=== PATIENT | female | born 1940 | race Caucasian/White ===

== ENCOUNTER 2021-07-23 16:10 | Outpatient (CLI) | payer MEDICARE, BC ==
[2021-07-23 17:45] LABS: Hemoglobin 11.7 g/dL (12.0-15.5); Mean Corpuscular HGB CONC 33.9 g/dL (32.0-36.0); Mean Corpuscular Hemoglobin 33.1 pg (27.0-33.0); Mean Corpuscular Volume 97.7 fl (81.6-98.3); Mean Platelet Volume 9.6 fl (7.4-10.4); Platelet Count 278 10x3/uL (150-450); RBC Distribution Width 12.5 % (11.5-14.5); Red Blood Cell (RBC) Count 3.53 10x6/uL (3.90-5.03); White Blood Cell (WBC) Count 4.6 10x3/uL (3.5-10.5)
[2021-07-23 17:47] LABS: Prothrombin Time 10.9 sec (9.5-12.1)
[2021-07-23 17:50] LABS: Anion Gap 12 mmol/L (10-20); BUN (Urea Nitrogen) 34 mg/dL (9.8-20.1); Calc. Creatinine Clearance 0 mL/min (70-130); Carbon Dioxide 28 mmol/L (23-31); Chloride 105 mmol/L (98-107); Glucose 109 mg/dL (83-110); Potassium 4.4 mmol/L (3.5-5.1); Sodium 141 mmol/L (136-145)
[2021-07-24 15:29] LABS: SARS-CoV-2 PCR by NAA Not Detected (NotDetected)
== END 2021-07-23 16:11 | disposition home or self-care (01) ==
LOC: LABBT 16:10
PROVIDERS: ATTEND Surgery
DX: Z01.818 Encounter for other preprocedural examination (principal); M47.16 Other spondylosis with myelopathy, lumbar region; M48.062 Spinal stenosis, lumbar region with neurogenic claudication; Z20.822 Contact with and (suspected) exposure to COVID-19
CPT/HCPCS: 80048; 85027; 85610; 85730; 93005; U0003; U0005; 93010

== ENCOUNTER 2021-07-28 07:52 | Inpatient (IN) | payer MEDICARE, BC ==
[2021-07-22 10:38] VITALS: BMI 28.3
[2021-07-28] MEDS ORDERED: ceFAZolin 2 GM/DEX 5% 100 ML BAG ONE ×2 (08:46→17:32)
[2021-07-28] MEDS ORDERED: Fentanyl 100 MCG/2 ML VIAL ONE (09:35)
[2021-07-28] MEDS ORDERED: Dexamethasone 20 MG/5 ML VIAL ONE (10:00)
[2021-07-28] MEDS ORDERED: Labetalol HCl 100 MG/20 ML VIAL ONE (10:00)
[2021-07-28] MEDS ORDERED: Ondansetron PF 4 MG/2 ML Vial ONE (10:00)
[2021-07-28] MEDS ORDERED: Lidocaine 1% PF 5 ML VIAL ONE (10:00)
[2021-07-28] MEDS ORDERED: Rocuronium Bromide 10 MG/ML (10ML VIAL) ONE (10:00)
[2021-07-28] MEDS ORDERED: Ketorolac Tromethamine 30 MG/ML VIAL ONE (10:00)
[2021-07-28] MEDS ORDERED: PROPOFOL 200 MG/20 ML VIAL ONE (10:00)
[2021-07-28] MEDS ORDERED: Thrombin 5000 UNITS/5 ML VIAL ONE (10:16)
[2021-07-28] MEDS ORDERED: hydrALAZINE 20 MG/ML VIAL ONE (10:50)
[2021-07-28] MEDS ORDERED: SUGAMMADEX SODIUM 200 MG/2 ML VIAL ONE (11:18)
[2021-07-28] MEDS ORDERED: traMADol HCl 50 MG TAB PO PRN (11:50)
[2021-07-28] MEDS ORDERED: HYDROcodone/Acetaminophen 7.5/325 mg Tablet PO PRN (11:50)
[2021-07-28] MEDS ORDERED: Promethazine HCl 25 MG/ML VIAL ONE (11:58)
[2021-07-28] MEDS ORDERED: Ondansetron HCl/PF 4 MG/2 ML Vial IVP PRN (11:59)
[2021-07-28] MEDS ORDERED: Promethazine HCl 25 MG/ML VIAL IVPB PRN (11:59)
[2021-07-28] MEDS ORDERED: Morphine Sulfate 2 MG/ML SYRINGE SLOW IVP PRN (11:59)
[2021-07-28] MEDS ORDERED: Promethazine HCl 25 MG/ML VIAL IM PRN (11:59)
[2021-07-28] MEDS ORDERED: Morphine 4 MG/ML VIAL ONE ×3 (12:10→13:23)
[2021-07-28] MEDS ORDERED: Acetaminophen 325 MG TAB ONE ×2 (18:39)
[2021-07-28] MEDS: ceFAZolin Sodium/D5W 2 GM in Premix Bag 1 BAG IVPB SCH (20:50)
[2021-07-28] MEDS: Sodium Chloride 0.9% 1,000 ML IV SCH (20:50)
[2021-07-28] MEDS: cloNIDine 0.1 MG TAB PO SCH (20:52)
[2021-07-28] MEDS: busPIRone HCl 10 MG TAB PO SCH (20:52)
[2021-07-28] MEDS: Atorvastatin Calcium 40 MG TAB PO SCH (20:52)
[2021-07-28] MEDS: Melatonin 3 MG TAB PO SCH (20:53)
[2021-07-28] MEDS: Mirtazapine 30 MG TAB PO SCH (20:53)
[2021-07-28] MEDS: Senokot S 8.6-50 MG TAB PO SCH (20:53)
[2021-07-28] MEDS: Losartan 25 MG TAB PO SCH (20:53)
[2021-07-28] MEDS: Gabapentin 300 MG CAP PO SCH (20:53)
[2021-07-28] MEDS: Acetaminophen 325 MG TAB PO PRN (21:10)
[2021-07-28] MEDS: tiZANidine HCl 4 MG TAB PO PRN (21:10)
[2021-07-28] MEDS: Morphine 4 MG/ML VIAL SLOW IVP PRN (23:03)
[2021-07-29] MEDS: Sodium Chloride 0.9% 1,000 ML IV SCH ×3 (01:38→21:22)
[2021-07-29] MEDS: ceFAZolin Sodium/D5W 2 GM in Premix Bag 1 BAG IVPB SCH (01:39)
[2021-07-29] MEDS: Morphine 4 MG/ML VIAL SLOW IVP PRN ×2 (01:40→06:00)
[2021-07-29] MEDS: Levothyroxine Sodium 75 MCG TAB PO SCH (05:57)
[2021-07-29] MEDS: Acetaminophen 325 MG TAB PO PRN (06:00)
[2021-07-29] MEDS: Multivit, Therapeutic 1 TAB PO SCH (08:31)
[2021-07-29] MEDS: Calcium Carbonate 600 MG TAB PO SCH (08:31)
[2021-07-29] MEDS: Hydrochlorothiazide 25 MG TAB PO SCH (08:31)
[2021-07-29] MEDS: busPIRone HCl 10 MG TAB PO SCH ×2 (08:31→21:17)
[2021-07-29] MEDS: Losartan 25 MG TAB PO SCH ×2 (08:32→21:17)
[2021-07-29] MEDS: cloNIDine 0.1 MG TAB PO SCH ×2 (08:32→21:18)
[2021-07-29] MEDS: DULoxetine 60 MG CAP PO SCH (08:32)
[2021-07-29] MEDS: Cholecalciferol 1,000 UNITS (25 MCG) TAB PO SCH (08:33)
[2021-07-29] MEDS: traMADol HCl 50 MG TAB PO PRN (08:57)
[2021-07-29] MEDS: Melatonin 3 MG TAB PO SCH (21:17)
[2021-07-29] MEDS: Atorvastatin Calcium 40 MG TAB PO SCH (21:17)
[2021-07-29] MEDS: Mirtazapine 30 MG TAB PO SCH (21:17)
[2021-07-29] MEDS: tiZANidine HCl 4 MG TAB PO PRN (21:17)
[2021-07-29] MEDS: Gabapentin 300 MG CAP PO SCH (21:18)
[2021-07-29] MEDS: Senokot S 8.6-50 MG TAB PO SCH (21:18)
[2021-07-30] MEDS: Levothyroxine Sodium 75 MCG TAB PO SCH (05:43)
[2021-07-30] MEDS: busPIRone HCl 10 MG TAB PO SCH (09:07)
[2021-07-30] MEDS: Hydrochlorothiazide 25 MG TAB PO SCH (09:07)
[2021-07-30] MEDS: Calcium Carbonate 600 MG TAB PO SCH (09:07)
[2021-07-30] MEDS: cloNIDine 0.1 MG TAB PO SCH (09:07)
[2021-07-30] MEDS: Losartan 25 MG TAB PO SCH (09:07)
[2021-07-30] MEDS: Cholecalciferol 1,000 UNITS (25 MCG) TAB PO SCH (09:08)
[2021-07-30] MEDS: DULoxetine 60 MG CAP PO SCH (09:08)
[2021-07-30] MEDS: Multivit, Therapeutic 1 TAB PO SCH (09:08)
[2021-07-30 09:12] VITALS: TEMP 99.1
[2021-07-30] MEDS: traMADol HCl 50 MG TAB PO PRN (13:56)
[2021-07-30 14:32] VITALS: BP 137/52
== END 2021-07-30 16:20 | DRG 460 ==
LOC: SDC 07:52 → T4-B 11:50 → OBSVTOIN 07-29 18:52
PROVIDERS: ADMIT Surgery; ATTEND Surgery
PROC: 0SG0071 Fusion of Lumbar Vertebral Joint with Autologous Tissue Substitute, Posterior Approach, Posterior Column, Open Approach (ICD-10-PCS; principal; 2021-07-28)
PROC: 01NB0ZZ Release Lumbar Nerve, Open Approach (ICD-10-PCS; 2021-07-28)
PROC: 5A09357 Assistance with Respiratory Ventilation, Less than 24 Consecutive Hours, Continuous Positive Airway Pressure (ICD-10-PCS; 2021-07-29)
DX: M48.062 Spinal stenosis, lumbar region with neurogenic claudication (principal); G99.2 Myelopathy in diseases classified elsewhere; M43.16 Spondylolisthesis, lumbar region; I10 Essential (primary) hypertension; E78.5 Hyperlipidemia, unspecified; G47.30 Sleep apnea, unspecified; F32.A Depression, unspecified; F41.9 Anxiety disorder, unspecified; E03.9 Hypothyroidism, unspecified; Z99.89 Dependence on other enabling machines and devices; Z85.828 Personal history of other malignant neoplasm of skin; Z79.899 Other long term (current) drug therapy; Z79.890 Hormone replacement therapy; Z79.1 Long term (current) use of non-steroidal anti-inflammatories (NSAID)
CPT/HCPCS: 76000; C1713; J0360; J1100; J1885; J2270; J2405; J2550; J2704; J3010; J3370; J7050

== ENCOUNTER 2022-07-14 14:10 | Outpatient (CLI) | payer MEDICARE, BC | END 2022-07-14 14:11 | disposition home or self-care (01) | LOC: SCSLAB 14:10 → SCSRAD 14:11 | PROVIDERS: ATTEND Internal Medicine Rheumatology | DX: M25.561 Pain in right knee (principal); M16.11 Unilateral primary osteoarthritis, right hip ==